=== PATIENT | female | born 1950 | race Caucasian/White ===

== ENCOUNTER 2023-01-02 10:32 | Emergency (ER) | payer MEDICARE | END 2023-01-02 11:29 | disposition home or self-care (01) | LOC: ERS 10:32 | DX: J01.90 Acute sinusitis, unspecified (principal); Z87.891 Personal history of nicotine dependence | CPT/HCPCS: 99283 ==

== ENCOUNTER 2024-01-03 14:28 | Outpatient (CLI) | payer MEDICARE | END 2024-01-03 14:29 | disposition home or self-care (01) | LOC: BICCT 14:28 | PROVIDERS: ATTEND Orthopaedic Surgery | DX: S72.141A Displaced intertrochanteric fracture of right femur, initial encounter for closed fracture (principal); M25.461 Effusion, right knee; Z96.651 Presence of right artificial knee joint ==

== ENCOUNTER 2024-01-14 10:22 | Outpatient (CLI) | payer MEDICARE | END 2024-01-14 10:23 | disposition home or self-care (01) | LOC: BICMAMMO 10:22 | PROVIDERS: ATTEND Family Medicine | DX: S72.141A Displaced intertrochanteric fracture of right femur, initial encounter for closed fracture (principal); Z78.0 Asymptomatic menopausal state; M81.0 Age-related osteoporosis without current pathological fracture | CPT/HCPCS: 77080 ==

== ENCOUNTER 2024-01-20 12:21 | Outpatient (CLI) | payer MEDICARE | END 2024-01-20 12:22 | disposition home or self-care (01) | LOC: BICCT 12:21 | PROVIDERS: ATTEND Family Medicine | DX: Z12.2 Encounter for screening for malignant neoplasm of respiratory organs (principal); K76.9 Liver disease, unspecified; Z87.891 Personal history of nicotine dependence | CPT/HCPCS: 71271 ==